=== PATIENT | female | born 1960 | race Hispanic/Latino ===

== ENCOUNTER 2016-07-25 07:15 | Outpatient (CLI) | payer BC ==
--- NOTE | 2016-07-25 10:03 | Mammography Report ---
Bilateral digital screening mammogram with CAD. Comparison is made to previous study on October 28, 2012. Findings: The breast parenchyma is heterogeneously dense. The overall pattern is stable. There are increasing coarse radiographically benign calcifications in the left breast. No suspicious microcalcifications or architectural distortion. Impression: Stable benign findings. BI-RADS code: 2. Recommendation: Annual screening.
== END 2016-07-25 07:16 | disposition home or self-care (01) ==
LOC: MAMMO 07:15
PROVIDERS: ATTEND Obstetrics & Gynecology
DX: Z12.31 Encounter for screening mammogram for malignant neoplasm of breast (principal)
CPT/HCPCS: 77067; G0202